=== PATIENT | male | born 1995 | race African-American/Black ===

== ENCOUNTER → 2016-10-07 | Outpatient (CLI) | payer OTHER ==
[~2016-10-07] VITALS: Ht 180.3 cm; Wt 81.0 kg
[~2016-10-07] MED LIST: AMLODIPINE BESY10 MG PO; LABETALOL HCL200 MG PO; PHOSLO667 MG PO; VITAMIN D3400 UNIT PO
[2016-10-07 12:35] VITALS: BP 151/105
== END ==
LOC: SPEC 12:02
DX: Z49.01 Encounter for fitting and adjustment of extracorporeal dialysis catheter (principal); I12.0 Hypertensive chronic kidney disease with stage 5 chronic kidney disease or end stage renal disease; N18.6 End stage renal disease; Z83.3 Family history of diabetes mellitus

== ENCOUNTER 2018-10-08 14:06 | Emergency (ER) | payer OTHER | END 2018-10-08 14:31 | disposition left against medical advice (07) | LOC: ER 14:06 | DX: Z53.21 Procedure and treatment not carried out due to patient leaving prior to being seen by health care provider (principal) ==